=== PATIENT | female | born 1950 | race Hispanic/Latino ===

== ENCOUNTER → 2018-08-25 | Outpatient (CLI) | payer MEDICARE ==
[~2018-08-25] MED LIST: CELE200 PO; ESCI20TA36 PO; FENO48TA4 PO; GLIP5TAB11 PO; HYDR-4060 PO; LACT10SO PO; METF-444 PO; SIMV40TA59 PO; SITA100T12 PO; TRAZ-185 PO; VALS80TA2 PO
== END | disposition home or self-care (01) ==
LOC: SHCH 13:49
PROVIDERS: ATTEND Internal Medicine Cardiovascular Disease
DX: I10 Essential (primary) hypertension (principal); E11.9 Type 2 diabetes mellitus without complications
CPT/HCPCS: 93306

== ENCOUNTER → 2018-09-02 | Outpatient (CLI) | payer SELFPAY | END | disposition home or self-care (01) | LOC: OIH 12:35 | PROVIDERS: ATTEND Internal Medicine Cardiovascular Disease | DX: Z13.6 Encounter for screening for cardiovascular disorders (principal) | CPT/HCPCS: 75571 ==

== ENCOUNTER 2021-02-16 18:13 | Emergency (ER) | payer OTHER, MEDICARE ==
[~2021-02-16 18:13] MED LIST changes: -ESCI20TA36 PO; +ESCI20TA38 PO; -FENO48TA4 PO; +FENO48TA9 PO; -LACT10SO PO; +LACT10SO5 PO
[2021-02-16] MEDS ORDERED: HYDROCODONE/ACETAMINOPHEN 5/325 MG TAB ONE (19:23)
== END 2021-02-16 20:32 | disposition home or self-care (01) ==
LOC: EDH 18:13
DX: R51.9 Headache, unspecified (principal); M54.2 Cervicalgia; M19.90 Unspecified osteoarthritis, unspecified site; G89.29 Other chronic pain; I10 Essential (primary) hypertension; F41.9 Anxiety disorder, unspecified
CPT/HCPCS: 70450; 72125

== ENCOUNTER → 2022-03-22 | Outpatient (CLI) | payer OTHER ==
[~2022-03-22] MED LIST changes: +FENO48TA10 PO; -FENO48TA9 PO
== END | disposition home or self-care (01) ==
LOC: RAH 10:01
PROVIDERS: ATTEND Internal Medicine Cardiovascular Disease
DX: Z13.6 Encounter for screening for cardiovascular disorders (principal)
CPT/HCPCS: 75571

== ENCOUNTER → 2023-08-06 | Outpatient (CLI) | payer OTHER | END | disposition home or self-care (01) | LOC: RAH 09:37 | PROVIDERS: ATTEND Psychiatry & Neurology Neurology | DX: G31.89 Other specified degenerative diseases of nervous system (principal) | CPT/HCPCS: 70551 ==

== ENCOUNTER → 2024-03-13 | Outpatient (CLI) | payer OTHER, MEDICARE ==
[~2024-03-13] MED LIST changes: +ALEN70TA80 PO; +ASPI-1197 PO; +DULA0.75 SQ; +FIORIT PO; -GLIP5TAB11 PO; +GLIP5TAB15 PO; +LOSA50TA64 PO; +METF-446 PO; +OMEP40CA21 PO; +ONDA4TAB10 PO; +SERT-439 PO
== END | disposition home or self-care (01) ==
LOC: LAB 09:02
PROVIDERS: ATTEND Psychiatry & Neurology Neurology
DX: M31.6 Other giant cell arteritis (principal)
CPT/HCPCS: 36415; 85651; 86140

== ENCOUNTER 2024-03-14 10:09 | Inpatient (IN) | payer OTHER, MEDICARE ==
[~2024-03-14] VITALS: Ht 152.4 cm; Wt 63.9 kg
[~2024-03-14 10:09] MED LIST changes: -ALEN70TA80 PO; -ASPI-1197 PO; -DULA0.75 SQ; -FIORIT PO; -LOSA50TA64 PO; -METF-446 PO; -OMEP40CA21 PO; -ONDA4TAB10 PO; -SERT-439 PO
[2024-03-14 10:58] LABS: BASOPHILS # (AUTO) 0.03 K/uL (0.00-0.20); BASOPHILS % (AUTO) 0.5 % (0.0-5.0); EOSINOPHILS # (AUTO) 0.01 K/uL (0.00-0.70); EOSINOPHILS % (AUTO) 0.2 % (0.0-8.0); HEMATOCRIT 31.4 % (36-48); IMMATURE GRANULOCYTE ABSOLUTE 0.07 K/uL (0-1); LYMPHOCYTES % (AUTO) 16.6 % (21.0-51.0); MEAN CORPUSCULAR HEMOGLOBIN 28.2 pg (27.0-33.0); MEAN CORPUSCULAR HGB CONC 34.7 g/dL (32.0-36.0); MEAN CORPUSCULAR VOLUME 81.1 fL (79-99); MONOCYTES # (AUTO) 0.5 K/uL (0.1-1.0); MONOCYTES % (AUTO) 8.5 % (3.0-13.0); NEUTROPHILS # (AUTO) 4.4 K/uL (1.8-7.7); PLATELET COUNT (AUTO) 246 K/uL (130-400); RED BLOOD CELL COUNT(AUTO) 3.87 MIL/uL (4.00-5.50); RED CELL DISTRIBUTION WIDTH 13.9 % (11.0-15.5)
[2024-03-14 11:10] LABS: BILIRUBIN,TOTAL 0.3 mg/dL (0.2-1.0); CREATININE 0.6 mg/dL (0.5-1.0); POTASSIUM 4.1 mmol/L (3.5-5.1); TOTAL PROTEIN, SERUM 7.3 g/dL (6.0-8.3)
[2024-03-14] MEDS: FAMOTIDINE 20MG VIAL IV ONE (11:19)
[2024-03-14] MEDS: MORPHINE 2 MG SYG IVP ONE (11:20)
[2024-03-14] MEDS: METOCLOPRAMIDE 10 MG/2 ML VIAL IVP ONE (11:20)
[2024-03-14] MEDS: DICYCLOMINE HCL 10 MG/5 ML ML PO ONE (11:37)
[2024-03-14] MEDS: MAG/ALUM/SIMETH 30 ML UDCUP PO ONE (11:37)
[2024-03-14] MEDS: LIDOCAINE HCL 2% VISCOUS 15 ML UDCUP PO ONE (11:38)
[2024-03-14 14:11] LABS: APPEARANCE,URINE CLEAR (CLEAR); BILIRUBIN,URINE NEGATIVE (NEGATIVE); COLOR,URINE COLORLESS (YELLOW); GLUCOSE, URINE (UA) NEGATIVE (NEGATIVE); KETONES,URINE NEGATIVE (NEGATIVE); LEUKOCYTE ESTERASE ,URINE 75 Leu/uL (NEGATIVE); NITRATE,URINE NEGATIVE (NEGATIVE); OCCULT BLOOD,URINE NEGATIVE (NEGATIVE); PH,URINE 5.5 (5.0-8.0); PROTEIN,URINE NEGATIVE (NEGATIVE); UROBILINOGEN,URINE 0.2 mg/dL (0.2-1.0)
[2024-03-14 14:14] LABS: ADD UA MICROSCOPIC YES
[2024-03-14 14:20] LABS: MUCUS,URINE RARE LPF (None Seen); RBC,URINE 0-1 /HPF (0-1); SQUAMOUS EPITHELIAL CELL,UR RARE /HPF (0-2)
[2024-03-14] MEDS: 0.9%NACL 1000ML 1,000 ML IV SCH (16:30)
[2024-03-14] MEDS: HYDROMORPHONE 0.5 MG SYG (0.5MG/0.5ML) IVP PRN (18:22)
[2024-03-14] MEDS: CEFTRIAXONE 1G VIAL IVPB SCH (18:26)
[2024-03-14 18:50] VITALS: BP 164/69; PULSE 57; RESP 16
[2024-03-14 20:00] VITALS: BP 155/63; PULSE 51; RESP 22
[2024-03-14] MEDS ORDERED: DULA0.75 SQ (23:34)
[2024-03-14] MEDS ORDERED: ONDA4TAB10 PO (23:34)
[2024-03-14] MEDS ORDERED: OMEP40CA21 PO (23:34)
[2024-03-14] MEDS ORDERED: METF-446 PO (23:34)
[2024-03-14] MEDS ORDERED: ALEN70TA80 PO (23:34)
[2024-03-14] MEDS ORDERED: ASPI-1197 PO (23:34)
[2024-03-14] MEDS ORDERED: FIORIT PO (23:34)
[2024-03-14] MEDS ORDERED: LOSA50TA64 PO (23:34)
[2024-03-14] MEDS ORDERED: SERT-439 PO (23:34)
[2024-03-14 23:53] VITALS: BP 150/65; PULSE 53; RESP 20
[2024-03-15] VITALS (7 sets, daily range): BP systolic 144–172; BP diastolic 58–74; PULSE 56–63; RESP 16–22; O2SAT 97–99
[2024-03-15 05:16] LABS: BASOPHILS # (AUTO) 0.03 K/uL (0.00-0.20); BASOPHILS % (AUTO) 0.6 % (0.0-5.0); EOSINOPHILS # (AUTO) 0.03 K/uL (0.00-0.70); EOSINOPHILS % (AUTO) 0.6 % (0.0-8.0); HEMATOCRIT 28.9 % (36-48); IMMATURE GRANULOCYTE ABSOLUTE 0.02 K/uL (0-1); LYMPHOCYTES % (AUTO) 21.6 % (21.0-51.0); MEAN CORPUSCULAR HEMOGLOBIN 28.2 pg (27.0-33.0); MEAN CORPUSCULAR HGB CONC 35.3 g/dL (32.0-36.0); MEAN CORPUSCULAR VOLUME 79.8 fL (79-99); MONOCYTES # (AUTO) 0.5 K/uL (0.1-1.0); MONOCYTES % (AUTO) 10.3 % (3.0-13.0); NEUTROPHILS # (AUTO) 3.2 K/uL (1.8-7.7); NEUTROPHILS % (AUTO) 66.5 % (40.0-77.0); PLATELET COUNT (AUTO) 232 K/uL (130-400); RED BLOOD CELL COUNT(AUTO) 3.62 MIL/uL (4.00-5.50); WHITE BLOOD COUNT (AUTO) 4.8 K/uL (4.8-10.8)
[2024-03-15 05:36] LABS: ALBUMIN 3.6 g/dL (3.5-5.0); BILIRUBIN,TOTAL 0.3 mg/dL (0.2-1.0); CREATININE 0.5 mg/dL (0.5-1.0); POTASSIUM 4.1 mmol/L (3.5-5.1); TOTAL PROTEIN, SERUM 6.9 g/dL (6.0-8.3)
[2024-03-15] MEDS: ASPIRIN 81MG CHEW TAB PO SCH (08:07)
[2024-03-15] MEDS: SERTRALINE HCL 50 MG TABLET PO SCH (08:08)
[2024-03-15] MEDS: PANTOPRAZOLE 40 MG TAB DR PO SCH (08:08)
[2024-03-15] MEDS: LOSARTAN 50 MG TABLET PO SCH (08:38)
[2024-03-15] MEDS: ACETAMINOPHEN 325 MG TAB PO PRN (16:19)
[2024-03-16] VITALS (8 sets, daily range): BP systolic 126–149; BP diastolic 58–67; PULSE 57–63; RESP 16–22; O2SAT 99
[2024-03-16 07:10] LABS: HEMATOCRIT 35.9 % (36-48); MEAN CORPUSCULAR HGB CONC 33.7 g/dL (32.0-36.0); MEAN CORPUSCULAR VOLUME 83.1 fL (79-99); RED BLOOD CELL COUNT(AUTO) 4.32 MIL/uL (4.00-5.50); RED CELL DISTRIBUTION WIDTH 14.4 % (11.0-15.5)
[2024-03-16 07:23] LABS: CREATININE 0.4 mg/dL (0.5-1.0); POTASSIUM 4.6 mmol/L (3.5-5.1)
[2024-03-16] MEDS ORDERED: IOHEXOL 350 MG/ML 100ML INFUS..BTL IV ONE (15:00)
[2024-03-16] MEDS: POLYETHYLENE GLYCOL 3350 17 GM POWD.PACK PO ONE (16:58)
[2024-03-17] VITALS (7 sets, daily range): BP systolic 125–138; BP diastolic 56–66; PULSE 58–66; RESP 14–19; O2SAT 98–99
[2024-03-17] MEDS: POLYETHYLENE GLYCOL 3350 17 GM POWD.PACK PO SCH (10:04)
[2024-03-17] MEDS: LACTULOSE 20 GM/30 ML UDCUP PO SCH (10:04)
[2024-03-17] MEDS ORDERED: TRAMADOL HCL 50 MG TABLET PO PRN (18:10)
[2024-03-17] MEDS: ACETAMINOPHEN 325 MG TAB PO PRN (20:08)
[2024-03-18 04:00] VITALS: BP 149/77; PULSE 63; RESP 18
[2024-03-18 05:12] LABS: BASOPHILS # (AUTO) 0.04 K/uL (0.00-0.20); BASOPHILS % (AUTO) 0.8 % (0.0-5.0); EOSINOPHILS # (AUTO) 0.04 K/uL (0.00-0.70); EOSINOPHILS % (AUTO) 0.8 % (0.0-8.0); HEMATOCRIT 31.6 % (36-48); IMMATURE GRANULOCYTE ABSOLUTE 0.03 K/uL (0-1); LYMPHOCYTES # (AUTO) 1.6 K/uL (1.0-4.8); LYMPHOCYTES % (AUTO) 30.1 % (21.0-51.0); MEAN CORPUSCULAR HEMOGLOBIN 27.7 pg (27.0-33.0); MEAN CORPUSCULAR HGB CONC 33.9 g/dL (32.0-36.0); MEAN CORPUSCULAR VOLUME 81.9 fL (79-99); MONOCYTES # (AUTO) 0.5 K/uL (0.1-1.0); MONOCYTES % (AUTO) 10.4 % (3.0-13.0); NEUTROPHILS % (AUTO) 57.3 % (40.0-77.0); PLATELET COUNT (AUTO) 288 K/uL (130-400); RED BLOOD CELL COUNT(AUTO) 3.86 MIL/uL (4.00-5.50); RED CELL DISTRIBUTION WIDTH 14.6 % (11.0-15.5); WHITE BLOOD COUNT (AUTO) 5.2 K/uL (4.8-10.8)
[2024-03-18 05:37] LABS: ALBUMIN 4.1 g/dL (3.5-5.0); BILIRUBIN,TOTAL 0.3 mg/dL (0.2-1.0); CREATININE 0.5 mg/dL (0.5-1.0); POTASSIUM 4.2 mmol/L (3.5-5.1); TOTAL PROTEIN, SERUM 7.7 g/dL (6.0-8.3)
[2024-03-18 07:33] VITALS: BP 147/67; PULSE 65; RESP 18
[2024-03-18 08:00] VITALS: O2SAT 99
== END 2024-03-18 10:30 | disposition home or self-care (01) | DRG 392 ==
LOC: EDH 10:09 → EDHIP 16:09 → 3BH 17:59
PROVIDERS: ADMIT Internal Medicine; ATTEND Internal Medicine
DX: K59.03 Drug induced constipation (principal); E87.1 Hypo-osmolality and hyponatremia; N39.0 Urinary tract infection, site not specified; F11.20 Opioid dependence, uncomplicated; E11.9 Type 2 diabetes mellitus without complications; M54.16 Radiculopathy, lumbar region; E78.00 Pure hypercholesterolemia, unspecified; I10 Essential (primary) hypertension; T40.695A Adverse effect of other narcotics, initial encounter; Y92.89 Other specified places as the place of occurrence of the external cause; Z79.84 Long term (current) use of oral hypoglycemic drugs; T40.605A Adverse effect of unspecified narcotics, initial encounter
CPT/HCPCS: 36415; 74178; 80048; 80053; 81001; 82948; 83690; 84484; 85025; 85027; 87088; 93005; 96374; 96375; G0378; J0696; J1170; J2270; J2765; J3490; J7030; Q9967

== ENCOUNTER 2025-02-17 06:11 | Day surgery (SDC) | payer OTHER, MEDICARE ==
[2025-02-17] VITALS (10 sets, daily range): BP systolic 130–166; BP diastolic 61–72; PULSE 54–65; RESP 13–20; TEMP 97.1–97.5
[~2025-02-17] VITALS: Ht 152.4 cm; Wt 73.9 kg
[~2025-02-17 06:11] MED LIST changes: +ALEN70TA80 PO; +ASPI-1197 PO; -CELE200 PO; +DULA0.75 SQ; -ESCI20TA38 PO; -FENO48TA10 PO; +FIORIT PO; -GLIP5TAB15 PO; -HYDR-4060 PO; -LACT10SO5 PO; +LOSA50TA64 PO; -METF-444 PO; +METF-446 PO; +OMEP40CA21 PO; +ONDA-243 PO; +SERT-439 PO; -SITA100T12 PO; -TRAZ-185 PO; -VALS80TA2 PO
[2025-02-17] MEDS ORDERED: TOPI-97 PO (06:51)
[2025-02-17] MEDS ORDERED: NURTEC PO (06:51)
[2025-02-17] MEDS: 0.9%NACL 1000ML 1,000 ML IV ONE (06:52)
[2025-02-17] MEDS ORDERED: proPOFol 10 MG/ML 20ML VIAL IV ONE (08:13)
[2025-02-17] MEDS ORDERED: LIDOCAINE PF 100MG/5ML (2%) SYRINGE 5ML ONE (08:13)
== END 2025-02-17 09:31 | disposition home or self-care (01) ==
LOC: DAH 06:11 → ENDO 06:11
PROVIDERS: ATTEND Internal Medicine Gastroenterology
DX: R12 Heartburn (principal); K29.50 Unspecified chronic gastritis without bleeding; K31.A15 Gastric intestinal metaplasia without dysplasia, involving multiple sites; K44.9 Diaphragmatic hernia without obstruction or gangrene; K31.89 Other diseases of stomach and duodenum; K31.A0 Gastric intestinal metaplasia, unspecified; K57.30 Diverticulosis of large intestine without perforation or abscess without bleeding; I10 Essential (primary) hypertension; E78.5 Hyperlipidemia, unspecified; F41.9 Anxiety disorder, unspecified; F32.A Depression, unspecified; M81.0 Age-related osteoporosis without current pathological fracture; M19.90 Unspecified osteoarthritis, unspecified site; K76.0 Fatty (change of) liver, not elsewhere classified; K21.9 Gastro-esophageal reflux disease without esophagitis; E11.9 Type 2 diabetes mellitus without complications; Z86.0100 Personal history of colon polyps, unspecified; Z79.82 Long term (current) use of aspirin; Z79.84 Long term (current) use of oral hypoglycemic drugs; Z79.899 Other long term (current) drug therapy
CPT/HCPCS: 43239; 00731; 82948 ×2; J7030; J2003; J2704; A4620; A4215 ×2; A4223; A4222; A4221; A4663; A4606; J3490